=== PATIENT | male | born 1950 | race Caucasian/White ===

== ENCOUNTER 2022-05-05 16:33 | Emergency (ER) | payer MEDICAID ==
[~2022-05-05] VITALS: Ht 170.2 cm; Wt 105.0 kg
[2022-05-05 16:45] VITALS: BP 162/83
[2022-05-05] MEDS ORDERED: IBUPROFEN 400MG TABLET PO ONE (17:15)
[2022-05-05] MEDS ORDERED: IBUP-2028 MT (19:36)
== END 2022-05-05 20:00 | disposition home or self-care (01) ==
LOC: ER 16:33
DX: M54.2 Cervicalgia (principal); M54.9 Dorsalgia, unspecified; M25.512 Pain in left shoulder; M25.511 Pain in right shoulder; M25.572 Pain in left ankle and joints of left foot; M25.571 Pain in right ankle and joints of right foot; K21.9 Gastro-esophageal reflux disease without esophagitis; V43.52XA Car driver injured in collision with other type car in traffic accident, initial encounter; Y93.89 Activity, other specified; Y92.410 Unspecified street and highway as the place of occurrence of the external cause
CPT/HCPCS: 72128; 72131; 73030; 73610; 99284